=== PATIENT | female | born 1950 ===

== ENCOUNTER 2018-05-19 06:00 | Day surgery (SDC) | payer OTHER ==
[~2018-05-19 06:00] MED LIST: INTESTINEX1 CA1 PO; PERCOCET 5/3251 TAB PO; PRILOSEC20 MG PO
== END 2018-05-19 11:45 | disposition home or self-care (01) ==
LOC: AMB-ENDOS 06:00
DX: D12.2 Benign neoplasm of ascending colon (principal)

== ENCOUNTER 2018-12-22 06:35 | Day surgery (SDC) | payer OTHER | END 2018-12-22 13:25 | disposition home or self-care (01) | LOC: AMB-ENDOS 06:35 | DX: K64.1 Second degree hemorrhoids (principal) ==